=== PATIENT | male | born 1950 | race Caucasian/White ===

== ENCOUNTER 2018-09-02 14:40 | Observation (INO) | payer OTHER ==
[~2018-09-02] VITALS: Ht 172.7 cm; Wt 83.9 kg
[2018-09-02] MEDS ORDERED: LOSA25 PO (14:57)
[2018-09-02] MEDS ORDERED: PRED20 PO (14:58)
[2018-09-02 15:26] LABS: BASOPHILS ABSOLUTE AUTO 0.04 K/mm3 (0.00-0.23); BASOPHILS PERCENT AUTO 0 % (0-2); EOSINOPHILS ABSOLUTE AUTO 0.01 K/mm3 (0.00-0.68); EOSINOPHILS PERCENT AUTO 0 % (0-6); Hematocrit 40.6 % (37.0-53.0); Hemoglobin 13.1 g/dL (13.5-17.5); IMMATURE GRAN PERCENT AUTO 1 % (0-1); LYMPHOCYTES ABSOLUTE AUTO 0.73 K/mm3 (0.84-5.20); LYMPHOCYTES PERCENT AUTO 6 % (21-46); MONOCYTES ABSOLUTE AUTO 0.47 K/mm3 (0.16-1.47); MONOCYTES PERCENT AUTO 4 % (4-13); Mean Corpuscular HGB 27.5 pg (26.0-34.0); Mean Corpuscular HGB Conc 32.3 g/dL (31.5-36.5); Mean Corpuscular Volume 85 fL (80-100); Mean Platelet Volume 10.2 fL (9.1-12.4); NEUTROPHILS ABSOLUTE AUTO 10.95 K/mm3 (1.96-9.15); NEUTROPHILS PERCENT AUTO 89 % (41-73); Platelet Count 295 K/mm3 (150-400); RDW Coefficient Variation 13.2 % (11.7-14.2); RDW Standard Deviation 40.9 fL (35.1-46.3); Red Blood Cell Count 4.77 M/mm3 (4.30-5.90)
[2018-09-02 15:37] LABS: Troponin I 0.049 ng/mL (0.000-0.040)
[2018-09-02 15:38] LABS: Alanine Aminotransfer (ALT/SGP 34 U/L (12-78); Albumin, Blood 3.6 g/dL (3.4-5.0); Albumin/Globulin Ratio 1.1 (0.8-1.8); Alk Phos 99 U/L (50-136); Anion Gap 9 mmol/L (6-16); Aspartate Aminotrans (AST/SGOT 20 U/L (12-37); Bilirubin, Total 0.5 mg/dL (0.1-1.0); Blood Urea Nitrogen 17 mg/dL (8-24); Bun/Creatinine Ratio 17.2 (12.0-20.0); CO2, Blood 26 mmol/L (21-32); Calcium, Blood 8.6 mg/dL (8.5-10.1); Chloride, Blood 99 mmol/L (98-108); Creatinine, Blood 0.99 mg/dL (0.60-1.20); Globulin, Blood 3.4 g/dL (2.2-4.0); Glomerular Filtration Rate >60 (60-); Glucose, Blood 139 mg/dL (70-99); Sodium, Blood 134 mmol/L (136-145)
[2018-09-02 20:46] LABS: Creatine Kinase MB 2.4 ng/mL (0.0-3.6); Troponin I 0.035 ng/mL (0.000-0.040)
[2018-09-03 00:26] LABS: Creatine Kinase MB Index 0.9 (0.0-4.0); Troponin I 0.033 ng/mL (0.000-0.040)
[2018-09-03 06:21] LABS: Alanine Aminotransfer (ALT/SGP 34 U/L (12-78); Albumin, Blood 3.8 g/dL (3.4-5.0); Alk Phos 101 U/L (50-136); Anion Gap 6 mmol/L (6-16); Aspartate Aminotrans (AST/SGOT 24 U/L (12-37); Bilirubin, Total 0.4 mg/dL (0.1-1.0); Blood Urea Nitrogen 19 mg/dL (8-24); CO2, Blood 27 mmol/L (21-32); CPK Creatine Kinase 221 U/L (39-308); Chloride, Blood 108 mmol/L (98-108); Cholesterol 250 mg/dL (50-200); Creatine Kinase MB 1.6 ng/mL (0.0-3.6); Creatine Kinase MB Index 0.7 (0.0-4.0); Creatinine, Blood 1.12 mg/dL (0.60-1.20); Globulin, Blood 3.9 g/dL (2.2-4.0); Glomerular Filtration Rate >60 (60-); Glucose, Blood 97 mg/dL (70-99); Potassium, Blood 4.5 mmol/L (3.5-5.5); Sodium, Blood 141 mmol/L (136-145); Total Protein, Blood 7.7 g/dL (6.4-8.2); Triglycerides 135 mg/dL (30-160); Troponin I 0.034 ng/mL (0.000-0.040)
[2018-09-03 07:34] LABS: BASOPHILS ABSOLUTE AUTO 0.05 K/mm3 (0.00-0.23); BASOPHILS PERCENT AUTO 1 % (0-2); EOSINOPHILS ABSOLUTE AUTO 0.11 K/mm3 (0.00-0.68); EOSINOPHILS PERCENT AUTO 1 % (0-6); Hematocrit 42.1 % (37.0-53.0); Hemoglobin 13.4 g/dL (13.5-17.5); IMMATURE GRAN ABSOLUTE AUTO 0.06 K/mm3 (0.00-0.10); IMMATURE GRAN PERCENT AUTO 1 % (0-1); LYMPHOCYTES ABSOLUTE AUTO 1.49 K/mm3 (0.84-5.20); LYMPHOCYTES PERCENT AUTO 19 % (21-46); MONOCYTES ABSOLUTE AUTO 0.74 K/mm3 (0.16-1.47); MONOCYTES PERCENT AUTO 10 % (4-13); Mean Corpuscular HGB 27.3 pg (26.0-34.0); Mean Corpuscular HGB Conc 31.8 g/dL (31.5-36.5); Mean Corpuscular Volume 86 fL (80-100); Mean Platelet Volume 9.9 fL (9.1-12.4); NEUTROPHILS ABSOLUTE AUTO 5.31 K/mm3 (1.96-9.15); NEUTROPHILS PERCENT AUTO 69 % (41-73); Platelet Count 287 K/mm3 (150-400); RDW Coefficient Variation 13.5 % (11.7-14.2); RDW Standard Deviation 42.2 fL (35.1-46.3); Red Blood Cell Count 4.91 M/mm3 (4.30-5.90); White Blood Cell Count 7.76 K/mm3 (4.00-11.30)
[2018-09-03 08:11] LABS: LDL/HDL RATIO 2.8; Very Low Density Lipoprot Chol 27 mg/dL (6-32)
[2018-09-03 08:12] LABS: CHOL/HDL RATIO 4.2; Cholesterol 253 mg/dL (50-200); HDL Cholesterol 60 mg/dL (>39); Low Density Lipoprotein Chol 166 mg/dL (0-110); Triglycerides 135 mg/dL (30-160)
--- NOTE | 2018-09-03 10:07 | NUR ---
Echocardiogram completed.
[2018-09-03] MEDS ORDERED: ATOR40TA PO (15:18)
== END 2018-09-04 11:29 | disposition home or self-care (01) ==
LOC: ER 14:40 → ERHOLD 14:41
PROVIDERS: Physician Assistant; ADMIT Internal Medicine
DX: R77.8 Other specified abnormalities of plasma proteins (principal); I10 Essential (primary) hypertension; E78.5 Hyperlipidemia, unspecified; Z79.899 Other long term (current) drug therapy
CPT/HCPCS: 36415; 78452; 80053; 80061; 82465; 82550; 82553; 83690; 84478; 84484; 85025; 93005; 93010; 93017; 93306; 99285-25; A9500; G0378; J2785

== ENCOUNTER 2021-05-30 11:03 | Day surgery (SDC) | payer OTHER, MEDICARE ==
[~2021-05-30] VITALS: Ht 172.7 cm; Wt 88.5 kg
[~2021-05-30 11:03] MED LIST: ATOR40TA PO; DUPIXENT300 MG/21 SC; LOSA25 PO; PRED20 PO; TURMERIC500 M2 PO; VITAMIN D310 MC4 PO
[2021-05-30] MEDS ORDERED: Vitamin D1000 UNI1 PO (16:37)
[2021-05-30] MEDS ORDERED: Percocet 5-3251 EACH PO (16:49)
[2021-05-30] MEDS ORDERED: ASPI81CH PO (16:49)
--- NOTE | 2021-05-30 18:32 | NUR ---
SHIFT SUMMARY PT ARRIVED TO UNIT AROUND 1520, ALERT ORIENTED, & PLEASANT SINCE ARRIVAL. SPINAL WORE OFF AROUND 1730, PT UP TO HALLWAY, BATHROOM, & CHAIR SINCE. EATING, DRINKING, VOIDING WELL. MINIMAL PAIN. PRETTY BIRD.
[2021-05-31 04:51] LABS: BASOPHILS ABSOLUTE AUTO 0.02 K/mm3 (0.00-0.23); BASOPHILS PERCENT AUTO 0 % (0-2); EOSINOPHILS PERCENT AUTO 0 % (0-6); Hematocrit 35.5 % (37.0-53.0); Hemoglobin 11.7 g/dL (13.5-17.5); IMMATURE GRAN ABSOLUTE AUTO 0.09 K/mm3 (0.00-0.10); IMMATURE GRAN PERCENT AUTO 1 % (0-1); LYMPHOCYTES ABSOLUTE AUTO 0.74 K/mm3 (0.84-5.20); LYMPHOCYTES PERCENT AUTO 5 % (21-46); MONOCYTES ABSOLUTE AUTO 1.05 K/mm3 (0.16-1.47); MONOCYTES PERCENT AUTO 7 % (4-13); Mean Corpuscular Volume 82 fL (80-100); Mean Platelet Volume 10.2 fL (9.1-12.4); NEUTROPHILS ABSOLUTE AUTO 12.38 K/mm3 (1.96-9.15); NEUTROPHILS PERCENT AUTO 87 % (41-73); Platelet Count 275 K/mm3 (150-400); RDW Coefficient Variation 12.7 % (11.7-14.2); RDW Standard Deviation 38.3 fL (35.1-46.3); Red Blood Cell Count 4.34 M/mm3 (4.30-5.90); White Blood Cell Count 14.28 K/mm3 (4.00-11.30)
--- NOTE | 2021-05-31 05:00 | NUR ---
PT IS IN BED AT THIS TIME WHERE HE REMAINS MUCH OF THE NIGHT AND IS RESTING COMFORTABLY. HE IS ALERT AND ORIENTED, ASSISTED WITH CARE AND ADLS, ASSISTED WITH BATHROOM AND TOILETING NEEDS AND MEDICATED INDICATED. HIS CALL LIGHT WAS PLACED NEAR HIM AND WAS ENCOURAGED TO CALL FOR HELP WHEN ASSISTANCE IS NEEDED HE IS MONITORED.
[2021-05-31 05:28] LABS: Anion Gap 7 mmol/L (6-16); Blood Urea Nitrogen 22 mg/dL (8-24); Bun/Creatinine Ratio 20.6 (12.0-20.0); CO2, Blood 27 mmol/L (21-32); Calcium, Blood 9.1 mg/dL (8.5-10.1); Chloride, Blood 103 mmol/L (98-108); Creatinine, Blood 1.07 mg/dL (0.60-1.20); Glomerular Filtration Rate >60 (60-); Glucose, Blood 148 mg/dL (70-99); Potassium, Blood 4.3 mmol/L (3.5-5.5); Sodium, Blood 137 mmol/L (136-145)
--- NOTE | 2021-05-31 11:43 | NUR ---
DISCHARGE SUMMARY PT POD #1 FOR RIGHT ANTERIOR HIP. AQUACEL DRESSING IN PLACE AND CDI. PT DENIES PAIN AT THIS TIME. WORKED WITH AND WAS CLEARED BY PHYSICAL THERAPY TO GO HOME. EDUCATED PATIENT ON POST OP CARE AND PT EXPRESSED UNDERSTANDING. PT ALSO EXPRESSED UNDERSTANDING REGARDING ANTERIOR HIP PRECAUTIONS. PT TO DC HOME WITH .
== END 2021-05-31 12:50 | disposition home or self-care (01) ==
LOC: ORSCMMR 11:03 → ORD 12:30 → ORSCMMR 12:30 → SURS 15:12 → ORSCMMR 05-31 12:50
PROVIDERS: Orthopaedic Surgery
PROC: 0SR90JA Replacement of Right Hip Joint with Synthetic Substitute, Uncemented, Open Approach (ICD-10-PCS; principal; 2021-05-30 12:30)
DX: M16.11 Unilateral primary osteoarthritis, right hip (principal); I10 Essential (primary) hypertension; Z87.891 Personal history of nicotine dependence; Z79.899 Other long term (current) drug therapy
CPT/HCPCS: 36415; 72170; 80048; 85025; 97110; 97116; 97162; A9270; C1776; J0171; J0690; J0735; J1100; J1885; J2250; J2370; J2405; J2795; J3010; J7120